=== PATIENT | female | born 1975 | race Hispanic/Latino ===

== ENCOUNTER 2018-02-28 15:08 | Emergency (ER) | payer OTHER ==
[2018-02-28] MEDS ORDERED: Sodium Chloride 0.9% 1,000 ML IV ONE (15:44)
[2018-02-28 15:54] LABS: BASO # 0.1 K/uL (0.0-0.2); EOS # 0.2 K/uL (0.0-0.7); EOS % 4.4 % (0.0-4.0); HEMOGLOBIN 12.6 g/dL (11.0-16.0); LYMPH # 2.1 K/uL (1.0-4.3); LYMPH % 37.4 % (20.0-40.0); MEAN CELL VOLUME 82.8 fL (81.0-99.0); MEAN CORPUSCULAR HGB CONC 32.6 g/dL (33.0-37.0); MEAN PLATELET VOLUME 7.5 fL (7.2-11.7); MONO # 0.5 K/uL (0.0-0.8); NEUT # 2.7 K/uL (1.8-7.0); NEUT % 48.2 % (50.0-75.0); RBC 4.67 Mil/uL (3.80-5.20); RED CELL DISTRIBUTION WIDTH 19.5 % (11.5-14.5); WHITE BLOOD COUNT 5.7 K/uL (4.8-10.8)
[2018-02-28] MEDS ORDERED: Sodium Chloride 0.9% 1,000 ML ONE (15:55)
[2018-02-28 15:56] LABS: HCG,QUALITATIVE URINE NEGATIVE (NEGATIVE)
[2018-02-28 15:58] LABS: SQUAMOUS EPITHIAL 4 /hpf (0-5); URINE BILIRUBIN NEGATIVE (NEGATIVE); URINE BLOOD NEGATIVE (NEGATIVE); URINE CLARITY Clear (Clear); URINE COLOR Yellow (YELLOW); URINE GLUCOSE (UA) NORMAL (Normal); URINE LEUKOCYTE ESTERASE NEG Leu/uL (Negative); URINE PROTEIN NEGATIVE (NEGATIVE); URINE UROBILINOGEN NORMAL mg/dL (0.2-1.0)
[2018-02-28 16:04] LABS: ALB/GLOB RATIO 1.2 (1.0-2.1); ALBUMIN 3.9 g/dL (3.5-5.0); ALT/SGPT 24 U/L (9-52); AST/SGOT 18 U/L (14-36); BLOOD UREA NITROGEN 15 mg/dL (7-17); CALCIUM 8.7 mg/dl (8.6-10.4); GFR NON-AFRICAN AMERICAN > 60; LIPASE 153 U/L (23-300)
[2018-02-28] MEDS ORDERED: Iohexol 240 (50 ml) PO STA (16:23)
[2018-02-28] MEDS ORDERED: Iodixanol 320 MG/ML 100 ML BOTTLE IV ONE (16:29)
[2018-02-28] MEDS ORDERED: Iohexol 240 (50 ml) ONE (16:35)
--- NOTE | 2018-02-28 17:46 | C.PDOC ---
History Of Present Illness 42 y/o female presents to the ER for evaluation of intermittent abdominal pain that has been present for approximately 2 weeks. Patient describes the pain as pressure-like, and she admits to associated decrease in appetite, nausea, and vomiting. She states that her PMD Dr. Boateng instructed her to come to the ER for CT scan and evaluation. She denies fever, chills, chest pain,, SOB, dsyuria/hematuria, vaginal bleeding/discharge. Time Seen by Provider: 02/28/18 15:23 Chief Complaint (Nursing): Abdominal Pain History Per: Patient History/Exam Limitations: no limitations Onset/Duration Of Symptoms: Days Current Symptoms Are (Timing): Still Present Severity: Moderate Quality Of Discomfort: "Pain" Past Medical History Reviewed: Historical Data, Nursing Documentation, Vital Signs Vital Signs: Last Vital Signs Temp 98.7 F 02/28/18 15:13 Pulse 91 H 02/28/18 15:13 Resp 20 02/28/18 15:13 BP 104/69 02/28/18 15:13 Pulse Ox 97 02/28/18 15:13 - Medical History PMH: No Chronic Diseases Surgical History: No Surg Hx Family History: States: No Known Family Hx - Social History Hx Alcohol Use: Yes Hx Substance Use: No - Immunization History Hx Tetanus Toxoid Vaccination: No Hx Influenza Vaccination: No Hx Pneumococcal Vaccination: No Review Of Systems Except As Marked, All Systems Reviewed And Found Negative. Constitutional: Negative for: Fever, Chills Cardiovascular: Negative for: Chest Pain Respiratory: Negative for: Shortness of Breath Gastrointestinal: Positive for: Nausea, Vomiting, Abdominal Pain Genitourinary: Negative for: Dysuria, Hematuria, Vaginal Discharge, Vaginal Bleeding Physical Exam - Physical Exam Appears: Well, Non-toxic, No Acute Distress Skin: Normal Color, Warm, Dry Eye(s): bilateral: Normal Inspection Oral Mucosa: Moist Neck: Supple Cardiovascular: Rhythm Regular Respiratory: Normal Breath Sounds, No Rales, No Rhonchi, No Wheezing Gastrointestinal/Abdominal: Normal Exam, Bowel Sounds, Soft, No Tenderness Extremity: Normal ROM Neurological/Psych: Oriented x3 ED Course And Treatment - Laboratory Results Result Diagrams: 02/28/18 15:49 02/28/18 15:49 O2 Sat by Pulse Oximetry: 97 (RA) Pulse Ox Interpretation: Normal - CT Scan/US CT abd & pelvis 2 Other Rad Studies (CT/US): Read By Radiologist, Radiology Report Reviewed CT/US Interpretation: Name:MARCE HERNANDEZ Exam Date:Feb 28, 2018 7:11:16 PM EST. Modality Type:CT. Description:CT - PELVIS. Gender:F Laterality:Not applicable. :75 Referring Physician:HOA FERNANDES MD. EXAM: CT Pelvis with IV contrast. CLINICAL HISTORY: DELAYED STUDY WITH PRONE POSITION. TECHNIQUE: Axial computed tomography images of the pelvis with intravenous contrast. CONTRAST: With intravenous contrast. COMPARISON: None provided. FINDINGS: APPENDIX: Delayed prone images were submitted. The appendix is not identified with certainty. There is no indirect evidence for appendicitis. This does not exclude appendicitis however. Correlate clinically. Consider repeat imaging in 24 hours if symptoms persist or worsen. PERITONEUM: No free fluid. No free air. LYMPH NODES: No lymphadenopathy is evident. REPRODUCTIVE: There is no adnexal cyst or mass or other pelvic abnormality to explain the patient's symptoms. VASCULATURE: No evidence of abdominal aortic aneurysm. BONES: No aggressive appearing osseous lesion. No acute osseous pathology evident. MISCELLANEOUS: A pessary ring is noted in the deep pelvis. IMPRESSION: 1. Delayed prone images were submitted. The appendix is not identified with certainty. There is no indirect evidence for appendicitis. This does not exclude appendicitis however. Correlate clinically. Consider repeat imaging in 24 hours if symptoms persist or worsen. 2. A pessary ring is noted in the deep pelvis. 3. There is no adnexal cyst or mass or other pelvic abnormality to explain the patient's symptoms. . Electronically signed on Feb 28, 2018 8:17:39 PM EST by: Preston Ramos M.D., Certified by [facility]. CT abd&pelvis 1 Other Rad Studies (CT/US): Read By Radiologist, Radiology Report Reviewed CT/US Interpretation: Name:MARCE HERNANDEZ Exam Date:Feb 28, 2018 5:45:36 PM EST. Modality Type:CT. Description:CT - ABDOMEN AND PELVIS WITH CORONAL AND SAGITTAL MPRS. Gender:F Laterality:Not applicable. :75 Referring Physician:HOA FERNANDES MD. EXAM: CT Abdomen and Pelvis with IV contrast. CLINICAL HISTORY: Rlq pain. ?appendicitis. TECHNIQUE: Axial computed tomography images of the abdomen and pelvis with intravenous contrast. CONTRAST: With intravenous contrast. COMPARISON: None provided. FINDINGS: LUNG BASES: The lung bases appear clear. No pleural effusions are seen. LIVER: Unremarkable. GALLBLADDER AND BILE DUCTS: The gallbladder appears within normal limits. No radioopaque gallstones are seen. No biliary ductal dilatation is evident. PANCREAS: Unremarkable. SPLEEN: Unremarkable. ADRENAL GLANDS: Unremarkable. KIDNEYS, URETERS, AND BLADDER: There is a retroaortic left renal vein. STOMACH AND BOWEL: Distal esophagus wall thickening is identified which could indicate esophagitis. Correlate clinically. APPENDIX: The appendix is not clearly identified with certainty on any of the supine or prone images. No definite indirect evidence for appendicitis is identified. This does not exclude appendicitis. Correlate clinically. If symptoms persist, consider repeat study in 24 hours. Alternatively consider right lower quadrant ultrasound. PERITONEUM: There is a paucity of retroperitoneal fat which limits full assessment of the peritoneal and retroperitoneal structures. LYMPH NODES: No lymphadenopathy is evident. REPRODUCTIVE: Unremarkable as visualized. VASCULATURE: No evidence of abdominal aortic aneurysm. BONES: No aggressive appearing osseous lesion. No acute osseous pathology evident. MISCELLANEOUS: A pessary ring is identified in the pelvis. IMPRESSION: 1. There is a paucity of retroperitoneal fat which limits full assessment of the peritoneal and retroperitoneal structures. 2. A pessary ring is identified in the pelvis. 3. Distal esophagus wall thickening is identified which could indicate esophagitis. Correlate clinically. 4. There is a retroaortic left renal vein. 5. The appendix is not clearly identified with certainty on any of the supine or prone images. No definite indirect evidence for appendicitis is identified. This does not exclude appendicitis. Correlate clinically. If symptoms persist, consider repeat study in 24 hours. Alternatively consider right lower quadrant ultrasound. . Electronically signed on Feb 28, 2018 8:17:07 PM EST by: Preston Ramos M.D., Certified by [facility]. Progress Note: Blood work, UA, CT-Abd & Pel ordered and reviewed. Patient given IV NS bolus. Called by radiologist, appendix not visualized on initial CT scan, she recommends repeat in 20-30 min for contrast to make its way further down. Reevaluation Time: 20:30 Reassessment Condition: Improved (Patient reassessed, is resting comfortably and states she feels better. On exam, abdomen is mildly tender to palpation at LLQ, (-) McBurney's, (-) Rovsing's. CT scan unable to visualize appendix, however clinical suspicion for appendicitis is low. Patient is requesting to be discharged, she was instructed to follow up with PMD in 1-2 days. She understands she should return to ED if symptoms worsen.) Disposition Counseled Patient/Family Regarding: Studies Performed, Diagnosis, Need For Followup, Rx Given - Disposition Referrals: Miguel Bermudez MD [Staff Provider] - Disposition: HOME/ ROUTINE Disposition Time: 20:30 Condition: STABLE Additional Instructions: FOLLOW UP WITH YOUR DOCTOR IN 1-2 DAYS RETURN TO ER IMMEDIATELY IF YOUR SYMPTOMS WORSEN Instructions: Acute Abdomen (Belly Pain), Adult (DC) Forms: [employer] (Croatian) Print Language: GUYANESE - Clinical Impression Clinical Impression: Abdominal pain - Scribe Statement The provider has reviewed the documentation as recorded by the Camilo Olvieira Provider Attestation: All medical record entries made by the Camilo were at my direction and personally dictated by me. I have reviewed the chart and agree that the record accurately reflects my personal performance of the history, physical exam, medical decision making, and the department course for this patient. I have also personally directed, reviewed, and agree with the discharge instructions and disposition.
[2018-02-28 21:00] VITALS: BP 109/66; PULSE 81; RESP 18; TEMP 98.7
--- NOTE | 2018-03-01 12:19 | CT ---
Date of service: 02/28/2018 PROCEDURE: CT Abdomen and Pelvis with contrast HISTORY: ABD PAIN, NAUSEA/VOMITING, DIARRHEA COMPARISON: Not available TECHNIQUE: Contrast dose: 100 mL Visipaque 320 Radiation dose: Total exam DLP = 478.71 mGy-cm. This CT exam was performed using one or more of the following dose reduction techniques: Automated exposure control, adjustment of the mA and/or kV according to patient size, and/or use of iterative reconstruction technique. 2.5 mm contiguous axial sections were acquired from the lung base to the pelvic floor. Additional images were acquired through the pelvis following 2 hr delay, for an attempt at opacification of the appendix. FINDINGS: LOWER THORAX: Unremarkable. LIVER: Unremarkable. No gross lesion or ductal dilatation. GALLBLADDER AND BILE DUCTS: Unremarkable. PANCREAS: Unremarkable. No gross lesion or ductal dilatation. SPLEEN: Unremarkable. ADRENALS: Unremarkable. No mass. KIDNEYS AND URETERS: Unremarkable. No hydronephrosis. No solid mass. VASCULATURE: Unremarkable. No aortic aneurysm. No aortic atherosclerotic calcification or mural plaque present. BOWEL: Unremarkable. No obstruction. No gross mural thickening. APPENDIX: A normal appendix is partially opacified on additional films acquired at 2 hr delay. The entire appendix is not identified. However, there are no secondary findings to suggest acute appendicitis. The appendix was not opacified on the images acquired at the time of the original scan. PERITONEUM: Unremarkable. No free fluid. No free air. LYMPH NODES: Unremarkable. No enlarged lymph nodes. BLADDER: Unremarkable. REPRODUCTIVE: Normal uterus. No adnexal masses. A pessary is noted in the inferior pelvis. BONES: No acute fracture. OTHER FINDINGS: None. IMPRESSION: No evidence of acute appendicitis. Although a normal appendix is not fully is opacified/visualize, there are no secondary findings to suggest acute appendicitis at this time. The preliminary findings for this examination were reported by [facility] at 8:17 p.m. on 02/28/2018. There is concurrence of this report with the preliminary findings.
[2018-03-06 12:05] VITALS: O2SAT 97
== END 2018-02-28 20:49 | disposition home or self-care (01) ==
LOC: C.ER 15:08
DX: R10.9 Unspecified abdominal pain (principal)
CPT/HCPCS: 74177; 80053; 81001; 83690; 84703; 85025; 96360; 99285; J7030; Q9966; Q9967